=== PATIENT | female | born 1965 | race Caucasian/White ===

== ENCOUNTER 2018-08-05 10:36 | Day surgery (SDC) | payer BC ==
[~2018-08-05 10:36] MED LIST: LACTATED RINGERS 1,000 ML IV SCH; LIDOCAINE 1% 20 ML VIAL (10MG/ML) FOR IV START INTRADERMA PRN
[2018-08-05 10:54] VITALS: RESP 16; TEMP 97.1
[2018-08-05] MEDS ORDERED: PROPOFOL 10 MG/ML 20 ML VIAL IV ONE (11:50)
[2018-08-05] MEDS ORDERED: LIDOCAINE 1% INJ 10MG/ML (20 ML MDV) ONE (11:50)
--- NOTE | 2018-08-05 12:41 | P.PCN ---
Date of Procedure: 08/05/18 Description of Procedure: BRIEF HISTORY: 53-year-old female with multiple medical comorbidities including connective tissue disorder, GERD, and hypothyroidism who presents for colonoscopy in evaluation of a change in bowel habits and history of colitis. She reports prior colonoscopy significant for sigmoid diverticulosis with a 10 cm segment of sigmoid colon significant for nonspecific colitis. Pathology at that time she states showed moderate active chronic colitis. She reports increase in frequency of bowel movements up to 6 times daily with blood per rectum prior to presentation. She reports family history of Crohn's disease in her brothers daughter and in her hands. PROCEDURE PERFORMED: Colonoscopy with biopsy. PREOPERATIVE DIAGNOSIS: History of nonspecific colitis, change in bowel habits, blood per rectum. ESTIMATED BLOOD LOSS: Minimal. IV sedation per Anesthesia. PROCEDURE: After informed consent was obtained, the patient, was brought into the endoscopy unit. IV sedation was administered by Anesthesia under continuous monitoring. Digital rectal examination was normal. Initially the Olympus CF-190 flexible video colonoscope was then inserted in the rectum, gradually advanced into the cecum without any difficulty. Careful examination was performed as the scope was gradually being withdrawn. Ileocecal valve appeared erythematous and edematous with multiple biopsies taken and the appendiceal orifice were visualized and appeared normal. Terminal ileum was intubated and appeared normal with biopsies taken. Prep was fair. Mucosa of the cecum, ascending colon, transverse colon, descending colon, sigmoid colon, and rectum appeared normal. Random biopsies were taken of the right colon, transverse colon, left colon and rectum. Retroflexion was performed in the rectum and no lesions were seen, and moderate internal hemorrhoids were noted. The patient tolerated the procedure well. IMPRESSION: 1. Erythematous, edematous ileocecal valve with biopsies taken. Otherwise normal-appearing colon from rectum to cecum. 2. Random biopsies taken of the terminal ileum, right colon, transverse colon, left colon and rectum. RECOMMENDATIONS: Findings of this examination were discussed with the patient and her daughter. Await pathology from biopsies. Patient is scheduled follow-up in the outpatient setting. Outpatient blood work ordered and pending. Further recommendations pending findings of biopsies.
[2018-08-05] MEDS ORDERED: ONDANSETRON 4 MG/2 ML VIAL IVP ONE (12:50)
[2018-08-05 13:00] VITALS: BP 115/80; PULSE 78
== END 2018-08-05 13:30 | disposition home or self-care (01) ==
LOC: ORWHC2ENDO 10:36
PROVIDERS: ATTEND Internal Medicine
DX: K52.9 Noninfective gastroenteritis and colitis, unspecified (principal); K21.9 Gastro-esophageal reflux disease without esophagitis; E03.9 Hypothyroidism, unspecified; I10 Essential (primary) hypertension; Z88.1 Allergy status to other antibiotic agents; Z88.0 Allergy status to penicillin; Z88.2 Allergy status to sulfonamides; Z88.8 Allergy status to other drugs, medicaments and biological substances; Z79.890 Hormone replacement therapy
CPT/HCPCS: 88305; 45380; J2405; J2001; J2704

== ENCOUNTER → 2018-09-28 | Outpatient (CLI) | payer BC ==
[2018-09-28 13:33] LABS: Basophils # (A) 0.1 k/uL (0-0.2); Basophils % (A) 1 %; Eosinophils # (A) 0.2 k/uL (0-0.7); Eosinophils % (A) 3 %; HGB 13.9 gm/dL (11.4-16.0); Lymphocytes # (A) 1.4 k/uL (1.0-4.8); Lymphocytes % (A) 27 %; MCH 29.8 pg (25.0-35.0); MCHC 32.4 g/dL (31.0-37.0); Mean Platelet Volume 6.7; Monocytes # (A) 0.4 k/uL (0-1.0); Monocytes % (A) 7 %; Neutrophils # (A) 3.1 k/uL (1.3-7.7); Neutrophils % (A) 59 %; Platelet Count 257 k/uL (150-450); RBC 4.68 m/uL (3.80-5.40); RDW 12.8 % (11.5-15.5); WBC 5.3 k/uL (3.8-10.6)
[2018-09-28 19:01] LABS: Vitamin D 25 Hydroxy 25.1 ng/mL (30.0-100.0)
[2018-09-28 19:03] LABS: Folate, Serum 10.1 ng/mL
[2018-09-28 19:16] LABS: Albumin 4.4 g/dL (3.80-4.90); Albumin/Globulin Ratio 2.32 (1.60-3.17); Anion Gap 7.5 mmol/L (4.00-12.00); Calcium 9.3 mg/dL (8.7-10.3); Carbon Dioxide 29.5 mmol/L (21.6-31.8); Globulin 1.9 g/dL (1.6-3.3); Potassium 4.8 mmol/L (3.5-5.5); Total Bilirubin 0.5 mg/dL (0.3-1.2); Total Protein 6.3 g/dL (6.2-8.2)
== END | disposition home or self-care (01) ==
LOC: LABWHC1 12:22
PROVIDERS: ATTEND Internal Medicine
DX: K51.00 Ulcerative (chronic) pancolitis without complications (principal)
CPT/HCPCS: 36415; 80053; 82306; 82607; 82746; 85025

== ENCOUNTER → 2018-10-14 | Outpatient (CLI) | payer BC | END | disposition home or self-care (01) | LOC: LABWHC1 12:11 | PROVIDERS: ATTEND Psychiatry & Neurology Neurology | DX: R20.2 Paresthesia of skin (principal); M60.9 Myositis, unspecified; M62.81 Muscle weakness (generalized) | CPT/HCPCS: 36415; 82550; 82607; 84207; 85652 ==

== ENCOUNTER → 2018-12-17 | Outpatient (CLI) | payer BC ==
--- NOTE | 2018-12-17 11:06 | MR ---
EXAMINATION TYPE: MR cervical spine wo con DATE OF EXAM: 12/17/2018 COMPARISON: None HISTORY: myelopathy TECHNIQUE: Multiplanar, multisequence images of the cervical spine were acquired. C2-C3: Uncovertebral joint hypertrophy. No Canal stenosis. No disc herniation. C3-C4: Uncovertebral joint hypertrophy greater on the right with a mild right-sided foraminal encroac hment. No Canal stenosis. C4-C5: Degenerative disc disease. Neural foramina remain patent. No disc herniation or canal stenosis . C5-C6: Uncovertebral joint hypertrophy and mild facet arthropathy. There is mild right-sided foramina l encroachment but no canal stenosis or disc herniation. Mild broad-based central disc bulging with m inimal effacement of the thecal sac. C6-C7: Degenerative disc disease with posterior spondylosis very mild central disc bulging. Neural fo ramina remain patent. No Canal stenosis. Mild bilateral uncovertebral joint hypertrophy. C7-T1: No evidence for degenerative disc disease. No disc bulge/herniation or protrusion. No Canal stenosis. Foramina are patent bilaterally. Cervical segments are intact. There is normal alignment. Cervical spinal cord is of normal signal. Craniovertebral junction relationships are within normal limits. IMPRESSION: 1. Multilevel degenerative disc disease and uncovertebral joint particularly with no canal stenosis. Right-sided foraminal encroachment C3-4 and C5-6 due to hypertrophic changes.
== END ==
LOC: RADMRIMAIN 09:10
PROVIDERS: ATTEND Psychiatry & Neurology Neurology
DX: M50.021 Cervical disc disorder at C4-C5 level with myelopathy (principal); G89.29 Other chronic pain; E63.1 Imbalance of constituents of food intake
CPT/HCPCS: 72141

== ENCOUNTER → 2018-12-30 | Outpatient (CLI) | payer BC ==
--- NOTE | 2018-12-31 09:16 | MR ---
EXAMINATION TYPE: MR brain wo/w con DATE OF EXAM: 12/30/2018 COMPARISON: None HISTORY: Demyelinating disease TECHNIQUE: Multiplanar, multisequence images of the brain and brainstem is performed without and with IV contras t, utilizing 12 mL intravenous Gadavist . FINDINGS: Diffusion weighted images demonstrate no evidence of a recent infarct or other diffusion ab normality. The ventricular system and cisternal spaces are normal in size and appearance. The brain volume is age appropriate. Midline structures demonstrate normal morphology. The craniocervical junction appears within normal limits. Post contrast images demonstrate no abnormal enhancement. The dural venous sinuses appear pa tent. Changes of chronic sinusitis. WHITE MATTER: There is abnormal signal noted on FLAIR imaging within the parietal lobes on axial image 19 is felt t o be artifactual. There are approximately 5 areas of abnormal signal scattered throughout the white matter bilaterally. All measure less than 5 mm. There are no enhancing lesions. No lesions perpendicular to ventricular system. No callosal lesions IMPRESSION: 1. Minimal nonspecific white matter changes. Findings can be seen with hypertension, remote microvasc ular ischemia, migraine headaches, or early demyelinating process. Correlate clinically.
== END | disposition home or self-care (01) ==
LOC: RADMRIMAIN 14:08
PROVIDERS: ATTEND Psychiatry & Neurology Neurology
DX: R90.89 Other abnormal findings on diagnostic imaging of central nervous system (principal); G43.919 Migraine, unspecified, intractable, without status migrainosus; H53.9 Unspecified visual disturbance; R41.3 Other amnesia; G37.9 Demyelinating disease of central nervous system, unspecified
CPT/HCPCS: 70553; A9577

== ENCOUNTER → 2019-01-17 | Outpatient (CLI) | payer BC ==
[2019-01-17 13:13] LABS: Basophils # (A) 0.1 k/uL (0-0.2); Basophils % (A) 1 %; Eosinophils # (A) 0.2 k/uL (0-0.7); Eosinophils % (A) 4 %; HGB 14.8 gm/dL (11.4-16.0); Lymphocytes # (A) 1.5 k/uL (1.0-4.8); Lymphocytes % (A) 29 %; MCH 29.8 pg (25.0-35.0); MCHC 32.8 g/dL (31.0-37.0); MCV 90.9 fL (80.0-100.0); Monocytes # (A) 0.4 k/uL (0-1.0); Monocytes % (A) 7 %; Neutrophils # (A) 3.1 k/uL (1.3-7.7); Neutrophils % (A) 58 %; Platelet Count 257 k/uL (150-450); RBC 4.95 m/uL (3.80-5.40); RDW 14.4 % (11.5-15.5); WBC 5.3 k/uL (3.8-10.6)
[2019-01-17 18:48] LABS: African American GFR (CKD) 98.2 (60.0-200.0); Albumin 4.5 g/dL (3.80-4.90); Albumin/Globulin Ratio 2.25 (1.60-3.17); Anion Gap 4.9 mmol/L (4.00-12.00); BUN/Creat Ratio 17.5 Ratio (12.00-20.00); Calcium 9.1 mg/dL (8.7-10.3); Carbon Dioxide 30.1 mmol/L (21.6-31.8); Potassium 4.7 mmol/L (3.5-5.5); Total Bilirubin 0.5 mg/dL (0.2-1.2); Total Protein 6.5 g/dL (6.2-8.2)
== END | disposition home or self-care (01) ==
LOC: LABWHC1 12:34
PROVIDERS: ATTEND Internal Medicine
DX: K51.00 Ulcerative (chronic) pancolitis without complications (principal)
CPT/HCPCS: 36415; 80053; 82306; 85025

== ENCOUNTER 2019-01-22 08:30 | Emergency (ER) | payer OTHER, BC ==
[2019-01-22 08:45] VITALS: TEMP 97.9
[2019-01-22] MEDS ORDERED: ACETAMINOPHEN TAB 500 MG TAB PO STA (08:49)
[2019-01-22] MEDS ORDERED: KETOROLAC 60 MG/2 ML VIAL IVP STA (08:49)
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
[2019-01-22 12:04] VITALS: BP 152/92; PULSE 89; RESP 18
== END 2019-01-22 11:45 | disposition home or self-care (01) ==
LOC: EC 08:30
DX: S20.212A Contusion of left front wall of thorax, initial encounter (principal); S80.01XA Contusion of right knee, initial encounter; S50.11XA Contusion of right forearm, initial encounter; M25.562 Pain in left knee; I10 Essential (primary) hypertension; K21.9 Gastro-esophageal reflux disease without esophagitis; Z87.891 Personal history of nicotine dependence; Z88.0 Allergy status to penicillin; Z88.1 Allergy status to other antibiotic agents; Z88.2 Allergy status to sulfonamides; Z88.8 Allergy status to other drugs, medicaments and biological substances; Z79.890 Hormone replacement therapy; Z79.899 Other long term (current) drug therapy; V43.52XA Car driver injured in collision with other type car in traffic accident, initial encounter; Y92.410 Unspecified street and highway as the place of occurrence of the external cause
CPT/HCPCS: 93005; 71120; 73562; 72170; 71100; 73090; 71046; 99285; 96374; J1885

== ENCOUNTER 2019-01-27 11:50 | Emergency (ER) | payer OTHER, BC ==
[2019-01-27 12:00] VITALS: RESP 18
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
[2019-01-27 12:40] LABS: Basophils % (A) 1 %; Eosinophils # (A) 0.1 k/uL (0-0.7); Eosinophils % (A) 2 %; HGB 13.6 gm/dL (11.4-16.0); Lymphocytes # (A) 1.1 k/uL (1.0-4.8); Lymphocytes % (A) 13 %; MCHC 31.6 g/dL (31.0-37.0); MCV 91.7 fL (80.0-100.0); Mean Platelet Volume 7.2; Monocytes # (A) 0.3 k/uL (0-1.0); Monocytes % (A) 3 %; Neutrophils # (A) 6.6 k/uL (1.3-7.7); Neutrophils % (A) 80 %; Platelet Count 247 k/uL (150-450); RBC 4.69 m/uL (3.80-5.40); RDW 13.3 % (11.5-15.5); WBC 8.2 k/uL (3.8-10.6)
[2019-01-27 12:52] LABS: African American GFR (CKD) >90 (>60 ml/min/1.73 sqM); Albumin 4.4 g/dL (3.5-5.0); Anion Gap 8 mmol/L; Blood Urea Nitrogen 24 mg/dL (7-17); Calcium 9.4 mg/dL (8.4-10.2); Carbon Dioxide 28 mmol/L (22-30); Chloride 104 mmol/L (98-107); Glucose 95 mg/dL (74-99); Sodium 140 mmol/L (137-145); Total Bilirubin 0.7 mg/dL (0.2-1.3); Total Protein 7.9 g/dL (6.3-8.2)
[2019-01-27 12:55] LABS: INR 0.9 (<1.2); Prothrombin Time 9.8 sec (9.0-12.0)
[2019-01-27 12:58] LABS: ALT 35 U/L (9-52); AST 28 U/L (14-36); Alkaline Phosphatase 80 U/L (38-126); Magnesium 1.8 mg/dL (1.6-2.3); Potassium 4.9 mmol/L (3.5-5.1)
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
[2019-01-27 14:05] LABS: Partial Thromboplastin Time 19.4 sec (22.0-30.0)
[2019-01-27 14:34] VITALS: BP 134/82; PULSE 70; TEMP 97.9
[2019-01-27 14:52] LABS: Appearance,Urine Clear (Clear); Bilirubin,Urine Negative (Negative); Blood,Urine Negative (Negative); Color,Urine Light Yellow; Glucose,Urine (UA) Negative (Negative); Ketones,Urine Negative (Negative); Leukocyte Esterase,Urine Negative (Negative); Nitrite,Urine Negative (Negative); PH, Urine 6.5 (5.0-8.0); Protein,Urine Negative (Negative); Specific Gravity,Urine 1.008 (1.001-1.035); Urobilinogen,Urine <2.0 mg/dL (<2.0)
== END 2019-01-27 15:01 | disposition home or self-care (01) ==
LOC: EC 11:50
DX: S20.211A Contusion of right front wall of thorax, initial encounter (principal); I10 Essential (primary) hypertension; K21.9 Gastro-esophageal reflux disease without esophagitis; Z79.890 Hormone replacement therapy; Z79.51 Long term (current) use of inhaled steroids; Z79.899 Other long term (current) drug therapy; Z88.1 Allergy status to other antibiotic agents; Z88.2 Allergy status to sulfonamides; Z88.0 Allergy status to penicillin; Z88.8 Allergy status to other drugs, medicaments and biological substances; Z87.891 Personal history of nicotine dependence; V89.2XXA Person injured in unspecified motor-vehicle accident, traffic, initial encounter; Y92.410 Unspecified street and highway as the place of occurrence of the external cause
CPT/HCPCS: 36415; 93005; 83880; 80053; 83690; 83735; 84484; 85025; 85610; 85730; 81003; 71275; 74177; 99284; Q9967

== ENCOUNTER → 2019-04-15 | Outpatient (CLI) | payer BC ==
[2019-04-15 12:58] LABS: Basophils # (A) 0.1 k/uL (0-0.2); Basophils % (A) 3 %; Eosinophils # (A) 0.2 k/uL (0-0.7); Eosinophils % (A) 4 %; HCT 47.2 % (34.0-46.0); HGB 15.1 gm/dL (11.4-16.0); Lymphocytes # (A) 1.3 k/uL (1.0-4.8); Lymphocytes % (A) 26 %; MCH 29.4 pg (25.0-35.0); MCV 91.8 fL (80.0-100.0); Mean Platelet Volume 6.8; Monocytes # (A) 0.5 k/uL (0-1.0); Monocytes % (A) 9 %; Neutrophils % (A) 57 %; Platelet Count 279 k/uL (150-450); RBC 5.14 m/uL (3.80-5.40); RDW 12.5 % (11.5-15.5); WBC 5.2 k/uL (3.8-10.6)
[2019-04-15 16:02] LABS: ALT 26 U/L (8-44); AST 24 U/L (13-35); African American GFR (CKD) 97.6 (60.0-200.0); Alkaline Phosphatase 82 U/L (41-126); Bilirubin, Conjugated <0.20 mg/dL (0.20-0.40); Creatine Kinase 107 U/L (26-186); Globulin 2.3 g/dL (1.6-3.3); Total Bilirubin 0.4 mg/dL (0.2-1.2); Total Protein 6.9 g/dL (6.2-8.2)
== END | disposition home or self-care (01) ==
LOC: LABWHC1 10:54
PROVIDERS: ATTEND Psychiatry & Neurology Neurology
DX: M35.1 Other overlap syndromes (principal); K51.00 Ulcerative (chronic) pancolitis without complications
CPT/HCPCS: 36415; 80076; 82550; 82565; 83519; 84520; 85025; 86480

== ENCOUNTER → 2019-05-02 | Outpatient (CLI) | payer BC ==
[2019-05-02 10:59] LABS: Basophils % (A) 1 %; Eosinophils # (A) 0.2 k/uL (0-0.7); Eosinophils % (A) 4 %; HCT 42.9 % (34.0-46.0); HGB 14.4 gm/dL (11.4-16.0); Lymphocytes # (A) 1.2 k/uL (1.0-4.8); Lymphocytes % (A) 27 %; MCH 30.6 pg (25.0-35.0); MCHC 33.5 g/dL (31.0-37.0); MCV 91.4 fL (80.0-100.0); Mean Platelet Volume 5.8; Monocytes # (A) 0.4 k/uL (0-1.0); Monocytes % (A) 8 %; Neutrophils # (A) 2.6 k/uL (1.3-7.7); Neutrophils % (A) 57 %; Platelet Count 236 k/uL (150-450); RDW 12.4 % (11.5-15.5); WBC 4.5 k/uL (3.8-10.6)
[2019-05-02 18:37] LABS: African American GFR (CKD) 74.5 (60.0-200.0); Albumin 4.3 g/dL (3.80-4.90); Albumin/Globulin Ratio 2.05 (1.60-3.17); Anion Gap 5.6 mmol/L (4.00-12.00); Calcium 9.4 mg/dL (8.7-10.3); Carbon Dioxide 30.4 mmol/L (21.6-31.8); Globulin 2.1 g/dL (1.6-3.3); Non-African American GFR(CKD) 64.3 (60.0-200.0); Potassium 4.7 mmol/L (3.5-5.5); Total Bilirubin 0.4 mg/dL (0.3-1.2); Total Protein 6.4 g/dL (6.2-8.2)
== END | disposition home or self-care (01) ==
LOC: LABWHC1 09:35
PROVIDERS: ATTEND Internal Medicine
DX: K51.00 Ulcerative (chronic) pancolitis without complications (principal)
CPT/HCPCS: 36415; 80053; 85025

== ENCOUNTER → 2020-03-14 | Outpatient (CLI) | payer OTHER ==
[2020-03-14 11:57] LABS: Basophils % (A) 1 %; Eosinophils # (A) 0.2 k/uL (0-0.7); Eosinophils % (A) 3 %; HCT 45.8 % (34.0-46.0); HGB 14.8 gm/dL (11.4-16.0); Lymphocytes # (A) 1.5 k/uL (1.0-4.8); Lymphocytes % (A) 25 %; MCHC 32.2 g/dL (31.0-37.0); MCV 96.2 fL (80.0-100.0); Mean Platelet Volume 7.1; Monocytes # (A) 0.4 k/uL (0-1.0); Monocytes % (A) 7 %; Neutrophils # (A) 3.8 k/uL (1.3-7.7); Neutrophils % (A) 62 %; Platelet Count 272 k/uL (150-450); RBC 4.76 m/uL (3.80-5.40); RDW 12.8 % (11.5-15.5); WBC 6.1 k/uL (3.8-10.6)
[2020-03-14 23:00] LABS: African American GFR (CKD) 97.6 (60.0-200.0); Albumin 4.4 g/dL (3.80-4.90); Albumin/Globulin Ratio 1.83 (1.60-3.17); Calcium 9.6 mg/dL (8.7-10.3); Globulin 2.4 g/dL (1.6-3.3); Non-African American GFR(CKD) 84.2 (60.0-200.0); Potassium 5.5 mmol/L (3.5-5.5); Total Bilirubin 0.3 mg/dL (0.2-1.2); Total Protein 6.8 g/dL (6.2-8.2)
== END | disposition home or self-care (01) ==
LOC: LABWHC1 09:37
PROVIDERS: ATTEND Nurse Practitioner
DX: K51.00 Ulcerative (chronic) pancolitis without complications (principal)
CPT/HCPCS: 36415; 80053; 85025

== ENCOUNTER 2020-10-18 08:16 | Day surgery (SDC) | payer OTHER ==
[2020-10-16 15:21] VITALS: BMI 41.0
[~2020-10-18 08:16] MED LIST changes: -LIDOCAINE 1% 20 ML VIAL (10MG/ML) FOR IV START INTRADERMA PRN
[2020-10-18 09:01] VITALS: TEMP 97.8
[2020-10-18] MEDS ORDERED: LACTATED RINGERS 1,000 ML IV ONE (09:06)
[2020-10-18] MEDS ORDERED: fentaNYL (PF) 50 MCG/ML 2 ML AMP ONE (10:04)
[2020-10-18] MEDS ORDERED: MIDAZOLAM 2 MG/2 ML VIAL ONE (10:04)
[2020-10-18] MEDS ORDERED: LIDOCAINE 1% INJ 10MG/ML (20 ML MDV) ONE (10:04)
[2020-10-18] MEDS ORDERED: ONDANSETRON 4 MG/2 ML VIAL ONE (10:04)
[2020-10-18] MEDS ORDERED: PROPOFOL 10 MG/ML 20 ML VIAL IV ONE (10:04)
--- NOTE | 2020-10-18 10:35 | P.PCN ---
Date of Procedure: 10/18/20 Description of Procedure: BRIEF HISTORY: Patient is a 55-year-old female presenting for outpatient colonoscopy for evaluation of ulcerative colitis. Patient has a history of ulcerative colitis currently on therapy with Lialda. Overall patient has been doing well, she does report that bowel movements will become frequent loose with associated urgency and association with increased stress in her life. Last colonoscopy in 07/2018 with findings consistent with quiescent colitis. PROCEDURE PERFORMED: Colonoscopy with biopsy. PREOPERATIVE DIAGNOSIS: Ulcerative colitis, less colonoscopy 2019. ESTIMATED BLOOD LOSS: Minimal. IV sedation per Anesthesia. PROCEDURE: After informed consent was obtained, the patient, was brought into the endoscopy unit. IV sedation was administered by Anesthesia under continuous monitoring. Digital rectal examination was normal. Initially the Olympus CF-190 flexible video colonoscope was then inserted in the rectum, gradually advanced into the cecum without any difficulty. Careful examination was performed as the scope was gradually being withdrawn. Ileocecal valve and the appendiceal orifice were visualized and appeared normal. Prep was excellent. Mucosa of the cecum, ascending colon, transverse colon, descending colon, sigmoid colon, and rectum appeared normal, and normal-appearing terminal ileum with random biopsies taken of the terminal ileum, right colon, transverse colon, left colon and rectum. A few scattered diverticula noted in the sigmoid colon. Retroflexion was performed in the rectum and no lesions were seen, low-grade internal hemorrhoids. The patient tolerated the procedure well. IMPRESSION: Normal-appearing colon from rectum to cecum and terminal ileum with random biopsies taken of the terminal ileum, right colon, transverse colon, left colon and rectum in the setting of ulcerative colitis. Mild sigmoid diverticulosis. RECOMMENDATIONS: Findings of this examination were discussed with the patient and her family. Okay to resume diet. Okay to resume medications. Await pathology from biopsies. Follow up in the GI clinic as scheduled. Continue current medical management. Repeat colonoscopy in 2 years for ulcerative colitis.
[2020-10-18 10:41] VITALS: RESP 16
[2020-10-18 10:56] VITALS: BP 127/80; PULSE 88
== END 2020-10-18 11:30 | disposition home or self-care (01) ==
LOC: ORWHC2ENDO 08:16
PROVIDERS: ATTEND Internal Medicine
DX: K57.30 Diverticulosis of large intestine without perforation or abscess without bleeding (principal); K51.90 Ulcerative colitis, unspecified, without complications; K64.8 Other hemorrhoids; Z98.890 Other specified postprocedural states; K21.9 Gastro-esophageal reflux disease without esophagitis; I10 Essential (primary) hypertension; Z87.891 Personal history of nicotine dependence; R91.1 Solitary pulmonary nodule; E07.9 Disorder of thyroid, unspecified; F41.9 Anxiety disorder, unspecified; G90.521 Complex regional pain syndrome I of right lower limb; L94.9 Localized connective tissue disorder, unspecified; Z79.890 Hormone replacement therapy; Z90.49 Acquired absence of other specified parts of digestive tract; Z79.51 Long term (current) use of inhaled steroids; Z79.899 Other long term (current) drug therapy; Z88.1 Allergy status to other antibiotic agents; Z88.0 Allergy status to penicillin; Z88.2 Allergy status to sulfonamides; Z88.8 Allergy status to other drugs, medicaments and biological substances
CPT/HCPCS: 88305; 45380; J2250; J2405; J2001; J3010; J2704

== ENCOUNTER → 2020-11-22 | Outpatient (CLI) | payer OTHER ==
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
== END | disposition home or self-care (01) ==
LOC: RADMRIMAIN 10:27
PROVIDERS: ATTEND Physical Medicine & Rehabilitation
DX: M50.30 Other cervical disc degeneration, unspecified cervical region (principal); M99.71 Connective tissue and disc stenosis of intervertebral foramina of cervical region
CPT/HCPCS: 72141

== ENCOUNTER → 2021-07-10 | Outpatient (CLI) | payer MEDICARE, OTHER ==
--- NOTE | 2021-07-10 16:23 | CT ---
EXAMINATION TYPE: CT abdomen pelvis wo con DATE OF EXAM: 07/10/2021 COMPARISON: 01/27/2019 HISTORY: 56-year-old female K5 7.92, RUQ pain CT DLP: 1154.7 mGycm. Automated exposure control for dose reduction was used. TECHNIQUE: Contiguous axial scanning of the abdomen and pelvis without IV contrast. Coronal and sagit stevne reconstructions performed. FINDINGS: Heart normal size without pericardial effusion. Some mild patchy density at the inferior lingula, pro bably atelectasis. No pleural effusion. Noncontrast appearance of the liver, adrenal glands, kidneys, spleen, and pancreas show no gross abno rmal. Cholecystectomy clips. No dilated small bowel, free fluid, or free air. No mesenteric or retroperitoneal lymphadenopathy. Normal appendix. Left colonic diverticulosis, greatest along the proximal to mid sigmoid colon. There is mild pericolonic fat stranding at the lower descending colon, axial image 46 and 49 for example i n mild wall thickening along the proximal sigmoid, axial image 65. Bladder under distended. Uterus anteverted. Small bilateral ovaries. Tiny pelvic phlebolith. No abnor mal fluid collection in pelvis or pelvic lymphadenopathy. Bones: Mild degenerative change at the hips and SI joints. Moderate degenerative disc disease mid to lower lumbar spine with facet arthropathy. Mild to moderate degenerative disc disease elsewhere in th e lumbar spine. IMPRESSION: 1. Left sided clonic diverticulosis, greatest in the sigmoid colon. There is mild pericolonic strand ing along the lower descending colon and mild wall thickening along the proximal sigmoid colon. Corre late for mild acute diverticulitis. No abscess or free air. Direct visualization after potential alvin tment if screening colonoscopy has not begun. 2. Status post cholecystectomy. No acute inflammatory process otherwise identified in the abdomen or pelvis to explain the patient's symptoms.
== END | disposition home or self-care (01) ==
LOC: RADCTMAIN 15:46
PROVIDERS: ATTEND Family Medicine
DX: K57.90 Diverticulosis of intestine, part unspecified, without perforation or abscess without bleeding (principal); K63.89 Other specified diseases of intestine; Z90.49 Acquired absence of other specified parts of digestive tract
CPT/HCPCS: 74176